=== PATIENT | female | born 1950 | race Caucasian/White ===

== ENCOUNTER 2025-09-17 16:47 | Inpatient (IN) | payer OTHER, MEDICAID ==
[2025-09-17 19:36] VITALS: BMI 37.5
[2025-09-17] MEDS: Famotidine 20 MG TAB PO SCH (21:23)
[2025-09-17] MEDS: Senokot 8.6 MG TAB PO SCH (21:23)
[2025-09-17] MEDS: Bupropion 150 MG SR.TAB PO SCH (21:23)
[2025-09-17] MEDS: Aspirin 81 mg Enteric Coated Tablet PO SCH (21:23)
[2025-09-17] MEDS: oxyCODONE 5 MG TAB PO PRN (21:24)
[2025-09-17] MEDS: Gabapentin 300 MG CAP PO SCH (21:24)
[2025-09-17] MEDS: lamoTRIgine 100 MG TAB PO SCH (21:25)
[2025-09-17] MEDS: Methocarbamol 500 MG TAB PO SCH (21:25)
[2025-09-17] MEDS: Ferrous Gluconate 324 MG TAB PO SCH (21:26)
[2025-09-18] MEDS: Acetaminophen 500 MG TAB PO SCH (00:15)
[2025-09-18] MEDS: clonazePAM 0.5 MG TAB PO PRN (00:15)
[2025-09-18] MEDS: oxyCODONE 5 MG TAB PO PRN (03:00)
[2025-09-18] MEDS: Milk Of Magnesia 30 ML UDCUP PO PRN (08:55)
[2025-09-18] MEDS: Multivitamin W/ Minerals 1 TAB PO SCH (08:58)
[2025-09-18 15:29] VITALS: BMI 37.5
[2025-09-19] MEDS: diphenhydrAMINE 25 MG CAP PO PRN (23:38)
[2025-09-21] MEDS: oxyCODONE 5 MG TAB PO PRN (12:36)
[2025-09-22] MEDS: Lisdexamfetamine Dimesylate [Vyvanse] 40 MG Capsule PO SCH (09:52)
[2025-09-22] MEDS: Cariprazine Hcl [Vraylar] 1.5 MG Capsule PO SCH (09:56)
[2025-09-22] MEDS: Benzocaine/Menthol 1 LOZ LOZ PO PRN (13:00)
[2025-09-28 05:05] VITALS: TEMP 97.8
[2025-09-28 08:12] VITALS: BP 135/67
== END 2025-09-28 11:05 | disposition home health service (06) | DRG 946 ==
LOC: BURMED 19:01
PROVIDERS: ADMIT Family Medicine; ATTEND Family Medicine
PROC: 5A09357 Assistance with Respiratory Ventilation, Less than 24 Consecutive Hours, Continuous Positive Airway Pressure (ICD-10-PCS; 2025-09-20)
PROC: F07Z9ZZ Gait Training/Functional Ambulation Treatment (ICD-10-PCS; principal; 2025-09-23)
DX: R53.1 Weakness (principal); I10 Essential (primary) hypertension; E03.9 Hypothyroidism, unspecified; E78.5 Hyperlipidemia, unspecified; F31.9 Bipolar disorder, unspecified; Z96.642 Presence of left artificial hip joint; Z88.2 Allergy status to sulfonamides; Z88.8 Allergy status to other drugs, medicaments and biological substances; Z90.49 Acquired absence of other specified parts of digestive tract; Z60.2 Problems related to living alone